=== PATIENT | male | born 1950 | race Caucasian/White ===

== ENCOUNTER 2016-12-21 15:52 | Inpatient (IN) | payer OTHER ==
[2016-12-21] VITALS (9 sets, daily range): BP systolic 140–209; BP diastolic 80–99
[~2016-12-21] VITALS: Ht 172.7 cm; Wt 84.8 kg
--- NOTE | ~2016-12-21 | ST ---
[place], [place] EXERCISE STRESS TEST REPORT NAME: LEIA GOMEZ UNIT #: [id number] ROOM: 411 DOCTOR: PAUL BAL MD BIRTHDATE: [birth year] DOS: 12/22/2016 REQUESTING PHYSICIAN: Dr. Arteaga. INDICATION: Chest pain. PROCEDURE: The patient was exercised on a treadmill using Valdez protocol, the patient exercised for 12 minutes and 8 seconds, reaching 88% of his maximum predicted heart rate. Maximum workload was 6 mets. Double product 25,756. Test was terminated due to shortness of breath. No complaint of chest pain, chest pressure, heaviness or tightness. BLOOD PRESSURE RESPONSE: Resting blood pressure 148/88 with ending blood pressure 188/72. ELECTROCARDIOGRAM INTERPRETATION: Resting electrocardiogram showed normal sinus rhythm, heart rate of 76. There is poor R progression. At the peak of exercise, there was no evidence of any significant ST or T-wave changes suggestive of myocardial ischemia. No arrhythmias were noted. SUMMARY: 1. Adequate stress test with impaired functional capacity. 2. Negative treadmill stress test for stress induced myocardial ischemia. 3. No arrhythmias were noted. 4. Normal blood pressure at rest with normal blood pressure response to exercise. 5. No arrhythmias were noted. 6. Nuclear images will be reported separately. PALU BAL MD CM:STRESS:EXERCISE STRESS TEST REPORT [id number] PAUL BAL MD
--- NOTE | ~2016-12-21 | PR ---
[place], [place] PROGRESS NOTE NAME: LEIA GOMEZ [facility] #: [id number] UNIT #: [id number] ROOM: 411 DOCTOR: PAUL BAL MD BIRTHDATE: [birth year] DOS: 12/23/2016 SUBJECTIVE: The patient is sitting up in bed, does not appear to be in any distress. Denies any further episodes of chest pain. No symptomatic palpitation. OBJECTIVE: VITAL SIGNS: Blood pressure 138/66, heart rate 77, respiratory rate of 14, temperature 97.0. NECK: Good upstroke, no bruit. HEART: S1, S2 with no rub. LUNGS: Diffuse air movement with minimal rhonchi could be heard at the right lower lobe. ABDOMEN: Soft, nontender, present bowel sounds. EXTREMITIES: Lower extremities, there is no edema. LABORATORY DATA: White count 11.3, hemoglobin 14.4, creatinine 0.5. Stress test was done, which was normal, with no evidence of ischemia and no wall motion abnormalities. ASSESSMENT AND PLAN: Presentation with complaint of chest pain. So far, the patient has been ruled out for OR by cardiac enzymes. Stress test where the patient was able to walk on treadmill without any significant ischemic changes. His nuclear images were normal with normal LV function and no evidence of any ischemia. For now, we will continue beta amira and aspirin along with aggressive lipid management. Smoking cessation was emphasized. The patient can be discharged home with early followup in our clinic within 2-4 weeks as an outpatient. PAUL BAL MD CM:NILO [id number] PAUL BAL MD 12/24/16 0316 interface
--- NOTE | ~2016-12-21 | CON ---
[place], [place] REPORT OF CONSULTATION NAME: LEIA GOMEZ UNIT #: [id number] ROOM: 411 DOCTOR: PAUL BAL MD BIRTHDATE: [birth year] DOS: REQUESTING PHYSICIAN: Dr. Arteaga. REASON FOR CONSULTATION: Chest pain. ASSESSMENT: 1. Current presentation with chest pain. 2. Hypertension. 3. Heavy and long history of tobacco abuse. 4. Unknown level of lipid. 5. Limited functional capacity. 6. History of alcohol abuse. The patient claims he is cutting down. PLAN: 1. Cycle cardiac enzymes. 2. Keep patient n.p.o. for a walking stress test with nuclear. 3. Enteric-coated aspirin 81 mg. 4. Lipid management for an LDL less than 70 mg/dL. 5. Smoking cessation. 6. Cardiac catheterization will be considered for any continued complain of chest pain. 7. Imdur 60 mg will be added to medication. 8. Early followup in our clinic within 2-4 weeks. HISTORY AND PHYSICAL: The patient is a pleasant 66-year-old gentleman unknown to our practice was referred by Dr. Arteaga for evaluation of chest pain. Apparently, the patient had been managed actively for his hypertension about few weeks ago and one of his medication was changed and since the patient started complaining of some chest pain, heaviness, tightness, substernal, nonradiating. It can reach up 6/10 and be provoked by activity and relieved with rest. This has been waxing and waning for the past few weeks that much a significant episode last night, which was almost 8-9/10. The patient continued until the patient presented to the Emergency Room where it was relieved with nitroglycerin. The patient does complain of occasional symptomatic palpitations lasting a second, occurs almost like every about a few months without any associated cardiac complaint. No dizziness. No lightheadedness or syncope. The patient has some limited functional capacity due to his bilateral lower extremity arthritic pain, but claims he is able to walk a mile. The patient had some limitation recently because of the chest pain. He sleeps on one pillow with no reported PND, orthopnea or pedal edema. No fever. No chills. No night sweats. No cough. Maintains good appetite. No weight loss. PAST MEDICAL HISTORY: As detailed in my assessment. SOCIAL HISTORY: The patient continues to smoke, has been doing this since he was 8 years old, about 1 to 2 pack a day. The patient does binge on alcohol, but claiming he is cutting down on that. No history of drug abuse. FAMILY HISTORY: There is no early family history of heart disease, both parents [place], [place] REPORT OF CONSULTATION NAME: LEIA GOMEZ UNIT #: [id number] ROOM: 411 DOCTOR: PAUL BAL MD BIRTHDATE: [birth year] . He has one sister and one brother with no early family history of heart problems. CURRENT MEDICATIONS: Metoprolol 50 mg, Cardizem 120, Protonix, Cozaar, Restoril, Zofran, magnesium, Dulcolax, [place], Tylenol. ALLERGIES: The patient has no known drug allergies. REVIEW OF SYSTEMS: Currently, the patient denies any headache, diplopia or blurry vision. No fever. No chills. No night sweats. No abdominal pain. No bright blood per rectum. No tarry stools. The patient admits to joint pain and muscular pain. No anxiety. No depression. No polyuria. No polydipsia. No skin rash. Review of all other systems has been negative. The patient claims he is under a lot of stress from his work situation and poor current family situation. PHYSICAL EXAMINATION: GENERAL: The patient is alert, oriented x 3, quite pleasant. The patient is sitting up in chair in the stress lab, does not appear in distress. Denies any ongoing current complaint. VITAL SIGNS: Blood pressure 151/80, heart rate 65, respiratory rate of 20, temperature 97.7. HEENT: Extraocular muscles intact. Pupils equal, round, reactive to light. Conjunctivae: No pallor. Throat: No petechiae. NECK: Good carotid upstroke. Unable to appreciate any bruit. No lymphadenopathy. No thyromegaly. HEART: S1, S2 with faint holosystolic murmur at left upper sternal border, loud P2. No rub. No retrosternal heave. CHEST AND BACK: No deformities. LUNGS: ____ diffuse air movement, but no shamar wheezing or rales. ABDOMEN: Soft, nontender, present bowel sounds. No masses. No bruits. LOWER EXTREMITIES: There is no edema, with faint distal pulses. NEUROLOGIC: Grossly nonfocal. SKIN: No significant rash. LABORATORY DATA: Electrocardiogram showed normal sinus rhythm with poor R-wave progression. White count 10.3, hemoglobin 15.5. Potassium 3.8, GFR more than 60%. Troponin less than 0.015. Total cholesterol 132, LDL 66, HDL 49 and triglyceride 87. Normal thyroid function tests. [place], [place] REPORT OF CONSULTATION NAME: LEIA GOMEZ UNIT #: [id number] ROOM: 411 DOCTOR: PAUL BAL MD BIRTHDATE: [birth year] PAUL BAL MD CM:CONSTR:REPORT OF CONSULTATION 1053 12/22/16 1156 interface
[~2016-12-21 15:52] MED LIST: TOPROL XL50 M1 PO
[2016-12-21 16:34] LABS: BASO # 0.1 10*3/uL (0.0-0.1); BASO % 1.1 % (0.0-1.0); EOS % 0.4 % (1.0-4.0); HEMATOCRIT 46.5 % (42.0-52.0); HEMOGLOBIN 15.8 g/dl (14.0-18.0); LYMPH # 1.4 10*3/uL (1.3-4.4); LYMPH % 17.3 % (27.0-41.0); MEAN CELL VOLUME 96.7 fl (80.0-94.0); MEAN CORPUSCULAR HGB 32.8 pg (27.0-31.0); MEAN PLATELET VOLUME 9.6 fl (9.6-12.3); MONO % 12.7 % (3.0-9.0); NEUT # 5.5 10*3/uL (2.3-7.9); NEUT % 68.3 % (47.0-73.0); PLATELET COUNT AUTOMATED 253 10*3/uL (130-400); RED BLOOD COUNT 4.81 10*6/uL (4.50-5.90); RED CELL DISTRI WIDTH 12.7 % (0-14.5)
[2016-12-21 16:42] LABS: INTERNATIONAL NORM RATIO 1.1 (2.0-3.5); PROTHROMBIN TIME 11.6 SECONDS (9.0-12.4)
[2016-12-21 16:48] LABS: ALBUMIN 3.5 gm/dl (3.1-4.5); ALKALINE PHOSPHATASE 122 U/L (45-117); BILIRUBIN, TOTAL 0.8 mg/dl (0.2-1.0); BUN 8 mg/dl (7-24); C-REACTIVE PROTEIN 0.32 MG/DL (0-0.3); CARBON DIOXIDE 28 mmol/L (21-32); CHLORIDE 102 mmol/L (98-107); CKMB 1.2 ng/ml (0.5-3.6); CPK 44 U/L (39-308); EST GLOM FILT AFRICAN AMERICAN > 60 ml/min; GLUCOSE 162 mg/dL (65-99); MAGNESIUM 1.8 mg/dL (1.5-2.1); POTASSIUM 3.7 mmol/L (3.5-5.1); SGOT/AST 44 IU/L (3-35); SGPT/ALT 61 U/L (12-78); SODIUM 136 mmol/L (136-145); TOTAL PROTEIN 7.3 gm/dL (6.4-8.2)
[2016-12-21 16:49] LABS: TROPONIN I < 0.015 ng/ml (<0.045)
[2016-12-21] MEDS ORDERED: CARTIA XT120 MG PO (21:02)
[2016-12-21] MEDS ORDERED: PRINIVIL10 MG PO (21:02)
[2016-12-22] VITALS: BP 165/83
[2016-12-22 05:50] LABS: BASO # 0.1 10*3/uL (0.0-0.1); EOS # 0.2 10*3/uL (0.0-0.4); EOS % 1.9 % (1.0-4.0); HEMATOCRIT 45.7 % (42.0-52.0); HEMOGLOBIN 15.5 g/dl (14.0-18.0); IG # 0.1 10*3/uL (0.0-0.1); LYMPH # 2.6 10*3/uL (1.3-4.4); LYMPH % 24.9 % (27.0-41.0); MEAN CELL VOLUME 96.8 fl (80.0-94.0); MEAN CORPUSCULAR HGB 32.8 pg (27.0-31.0); MEAN CORPUSCULAR HGB CONC 33.9 g/dl (33.0-37.0); MEAN PLATELET VOLUME 10.2 fl (9.6-12.3); MONO # 1.2 10*3/uL (0.1-1.0); MONO % 11.9 % (3.0-9.0); NEUT # 6.2 10*3/uL (2.3-7.9); NEUT % 59.8 % (47.0-73.0); PLATELET COUNT AUTOMATED 251 10*3/uL (130-400); RED BLOOD COUNT 4.72 10*6/uL (4.50-5.90); RED CELL DISTRI WIDTH 12.7 % (0-14.5); WHITE BLOOD COUNT 10.3 10*3/uL (4.8-10.8)
[2016-12-22 05:53] LABS: BUN 8 mg/dl (7-24); CARBON DIOXIDE 28 mmol/L (21-32); CHLORIDE 104 mmol/L (98-107); CHOLESTEROL 132 mg/dL (<200); EST GLOM FILT AFRICAN AMERICAN > 60 ml/min; GLUCOSE 88 mg/dL (65-99); MAGNESIUM 1.8 mg/dL (1.5-2.1); PHOSPHOROUS 3.6 mg/dL (2.5-4.9); POTASSIUM 3.8 mmol/L (3.5-5.1); SODIUM 139 mmol/L (136-145); TRIGLYCERIDES 87 mg/dl (<150); VLDL CHOLESTEROL 17 mg/dL (6-40)
[2016-12-22 06:03] LABS: FREE T4 1.01 ng/dl (0.76-1.46); HDL CHOLESTEROL 49 mg/dl (40-60); LDL CHOLESTEROL 66 mg/dL (9-159)
[2016-12-22 06:11] LABS: HEMOGLOBIN A1c 5.4 % (4.8-5.6)
[2016-12-22 06:16] LABS: INTERNATIONAL NORM RATIO 1.1 (2.0-3.5); PROTHROMBIN TIME 11.8 SECONDS (9.0-12.4)
[2016-12-22 08:00] VITALS: BP 151/80
[2016-12-22 12:00] VITALS: BP 160/80
[2016-12-22 13:11] LABS: VITAMIN D, 25-HYDROXY 29.3 ng/mL (30-100)
[2016-12-22 13:12] LABS: FOLIC ACID 11.4 ng/mL (>5.38)
[2016-12-22 16:00] VITALS: BP 146/69
[2016-12-22 20:00] VITALS: BP 140/70
[2016-12-23] VITALS: BP 135/78
[2016-12-23 05:51] LABS: BASO # 0.1 10*3/uL (0.0-0.1); BASO % 0.8 % (0.0-1.0); EOS # 0.1 10*3/uL (0.0-0.4); EOS % 1.2 % (1.0-4.0); HEMATOCRIT 41.6 % (42.0-52.0); HEMOGLOBIN 14.4 g/dl (14.0-18.0); LYMPH # 1.7 10*3/uL (1.3-4.4); LYMPH % 15.4 % (27.0-41.0); MEAN CELL VOLUME 97.7 fl (80.0-94.0); MEAN CORPUSCULAR HGB 33.8 pg (27.0-31.0); MEAN CORPUSCULAR HGB CONC 34.6 g/dl (33.0-37.0); MEAN PLATELET VOLUME 9.9 fl (9.6-12.3); MONO # 1.4 10*3/uL (0.1-1.0); MONO % 12.5 % (3.0-9.0); NEUT # 7.9 10*3/uL (2.3-7.9); NEUT % 69.7 % (47.0-73.0); PLATELET COUNT AUTOMATED 247 10*3/uL (130-400); RED BLOOD COUNT 4.26 10*6/uL (4.50-5.90); RED CELL DISTRI WIDTH 12.6 % (0-14.5); WHITE BLOOD COUNT 11.3 10*3/uL (4.8-10.8)
[2016-12-23 06:25] LABS: BUN 12 mg/dl (7-24); CARBON DIOXIDE 24 mmol/L (21-32); CHLORIDE 106 mmol/L (98-107); GLUCOSE 102 mg/dL (65-99); POTASSIUM 3.8 mmol/L (3.5-5.1); SODIUM 138 mmol/L (136-145)
[2016-12-23 06:27] LABS: EST GLOM FILT AFRICAN AMERICAN > 60 ml/min
[2016-12-23 08:00] VITALS: BP 138/66
[2016-12-23 12:00] VITALS: BP 136/75
[2016-12-23] MEDS ORDERED: Vitamin D PO (13:16)
[2016-12-23] MEDS ORDERED: ASPIRIN CHEWABL81 M1 PO (13:16)
[2016-12-23] MEDS ORDERED: TOPROL XL50 M1 PO (13:16)
[2016-12-23] MEDS ORDERED: IMDUR SA60 M1 PO (13:16)
== END 2016-12-23 13:48 | disposition home or self-care (01) | DRG 313 ==
LOC: ED 15:52 → 4E 18:22
PROVIDERS: Internal Medicine; Nurse Practitioner Family; Student in an Organized Health Care Education/Training Program
PROC: 4A02XM4 Measurement of Cardiac Total Activity, External Approach (ICD-10-PCS; principal; 2016-12-22)
PROC: 3E073KZ Introduction of Other Diagnostic Substance into Coronary Artery, Percutaneous Approach (ICD-10-PCS; principal; 2016-12-22)
DX: R07.89 Other chest pain (principal); I10 Essential (primary) hypertension; I16.1 Hypertensive emergency; F17.210 Nicotine dependence, cigarettes, uncomplicated; R73.9 Hyperglycemia, unspecified; R74.0 Nonspecific elevation of levels of transaminase and lactic acid dehydrogenase [LDH]; T50.995A Adverse effect of other drugs, medicaments and biological substances, initial encounter; Z79.899 Other long term (current) drug therapy; Z71.6 Tobacco abuse counseling; Z81.1 Family history of alcohol abuse and dependence; Y92.89 Other specified places as the place of occurrence of the external cause; F10.10 Alcohol abuse, uncomplicated

== ENCOUNTER → 2020-11-19 | Outpatient (CLI) | payer OTHER ==
[~2020-11-19] MED LIST changes: +ASPIRIN CHEWABL81 M1 PO; +CARTIA XT120 MG PO; +IMDUR SA60 M1 PO; +PREDNISONE50 MG PO; +PRINIVIL10 MG PO; +Vitamin D PO; +ZITHROMAX250 MG PO
[2020-11-19 12:09] LABS: BASO # 0.1 10*3/uL (0.0-0.1); EOS # 0.1 10*3/uL (0.0-0.4); HEMATOCRIT 47.7 % (42.0-52.0); LYMPH # 1.9 10*3/uL (1.3-4.4); LYMPH % 22.7 % (27.0-41.0); MEAN CELL VOLUME 97.9 fl (80.0-94.0); MEAN CORPUSCULAR HGB 33.3 pg (27.0-31.0); MEAN PLATELET VOLUME 9.8 fl (9.6-12.3); MONO % 12.7 % (3.0-9.0); NEUT # 5.1 10*3/uL (2.3-7.9); NEUT % 62.4 % (47.0-73.0); PLATELET COUNT AUTOMATED 267 10*3/uL (130-400); RED BLOOD COUNT 4.87 10*6/uL (4.50-5.90); RED CELL DISTRI WIDTH 12.4 % (0-14.5); WHITE BLOOD COUNT 8.2 10*3/uL (4.8-10.8)
[2020-11-19 12:39] LABS: ALBUMIN 3.6 gm/dl (3.1-4.5); ALKALINE PHOSPHATASE 106 U/L (45-117); BUN 8 mg/dl (7-24); CHLORIDE 106 mmol/L (98-107); CHOLESTEROL 138 mg/dL (<200); CREATININE 0.63 mg/dL (0.70-1.30); LDL CHOLESTEROL 83 mg/dL (9-159); POTASSIUM 4.3 mmol/L (3.5-5.1); SGOT/AST 35 IU/L (3-35); SGPT/ALT 51 U/L (12-78); SODIUM 136 mmol/L (136-145); TOTAL PROTEIN 7.5 gm/dL (6.4-8.2); TRIGLYCERIDES 75 mg/dl (<150)
[2020-11-19 12:45] LABS: THYROID STIM HORMONE (HS) 0.673 uIU/ml (0.358-4.75)
== END | disposition home or self-care (01) ==
LOC: LAB 11:42
PROVIDERS: ATTEND Internal Medicine
DX: D52.9 Folate deficiency anemia, unspecified (principal); D51.9 Vitamin B12 deficiency anemia, unspecified; R70.0 Elevated erythrocyte sedimentation rate; R79.82 Elevated C-reactive protein (CRP); R79.89 Other specified abnormal findings of blood chemistry; R74.8 Abnormal levels of other serum enzymes; E55.9 Vitamin D deficiency, unspecified; E03.9 Hypothyroidism, unspecified; I10 Essential (primary) hypertension; E78.2 Mixed hyperlipidemia; I25.10 Atherosclerotic heart disease of native coronary artery without angina pectoris; Z13.0 Encounter for screening for diseases of the blood and blood-forming organs and certain disorders involving the immune mechanism; Z13.1 Encounter for screening for diabetes mellitus; Z13.21 Encounter for screening for nutritional disorder; Z13.220 Encounter for screening for lipoid disorders; Z12.5 Encounter for screening for malignant neoplasm of prostate

== ENCOUNTER → 2022-03-28 | Outpatient (CLI) | payer OTHER ==
[2022-03-28 13:40] LABS: BASO # 0.1 10*3/uL (0.0-0.1); BASO % 0.9 % (0.0-1.0); EOS # 0.1 10*3/uL (0.0-0.4); EOS % 1.7 % (1.0-4.0); HEMATOCRIT 46.9 % (42.0-52.0); LYMPH # 2.1 10*3/uL (1.3-4.4); LYMPH % 27.8 % (27.0-41.0); MEAN CELL VOLUME 99.6 fl (80.0-94.0); MEAN CORPUSCULAR HGB 33.5 pg (27.0-31.0); MEAN CORPUSCULAR HGB CONC 33.7 g/dl (33.0-37.0); MEAN PLATELET VOLUME 9.7 fl (9.6-12.3); MONO # 1.1 10*3/uL (0.1-1.0); MONO % 13.9 % (3.0-9.0); NEUT # 4.2 10*3/uL (2.3-7.9); NEUT % 55.3 % (47.0-73.0); PLATELET COUNT AUTOMATED 246 10*3/uL (130-400); RED BLOOD COUNT 4.71 10*6/uL (4.50-5.90); RED CELL DISTRI WIDTH 12.5 % (0-14.5); WHITE BLOOD COUNT 7.6 10*3/uL (4.8-10.8)
[2022-03-28 14:11] LABS: ALKALINE PHOSPHATASE 112 U/L (45-117); BUN 10 mg/dl (7-24); CHLORIDE 107 mmol/L (98-107); CHOLESTEROL 146 mg/dL (<200); CREATININE 0.62 mg/dL (0.70-1.30); FREE T4 0.84 ng/dl (0.76-1.46); LDL CHOLESTEROL 86 mg/dL (9-159); POTASSIUM 4.4 mmol/L (3.5-5.1); SGOT/AST 27 IU/L (3-35); SODIUM 140 mmol/L (136-145); TOTAL PROTEIN 7.4 gm/dL (6.4-8.2); TRIGLYCERIDES 121 mg/dl (<150)
[2022-03-28 14:18] LABS: SGPT/ALT 37 U/L (12-78)
[2022-03-28 14:45] LABS: VITAMIN D, 25-HYDROXY 25.5 ng/mL (30-100)
== END ==
LOC: LAB 12:47
PROVIDERS: ATTEND Internal Medicine
DX: Z12.5 Encounter for screening for malignant neoplasm of prostate (principal); Z13.1 Encounter for screening for diabetes mellitus; Z13.0 Encounter for screening for diseases of the blood and blood-forming organs and certain disorders involving the immune mechanism; Z13.21 Encounter for screening for nutritional disorder; Z13.220 Encounter for screening for lipoid disorders; Z13.228 Encounter for screening for other metabolic disorders; Z13.29 Encounter for screening for other suspected endocrine disorder; Z13.6 Encounter for screening for cardiovascular disorders; Z13.89 Encounter for screening for other disorder; Z13.9 Encounter for screening, unspecified; E78.5 Hyperlipidemia, unspecified; E03.9 Hypothyroidism, unspecified; E55.9 Vitamin D deficiency, unspecified

== ENCOUNTER 2023-10-03 13:29 | Emergency (ER) | payer OTHER ==
[~2023-10-03] VITALS: Ht 162.5 cm; Wt 86.2 kg
[2023-10-03] MEDS ORDERED: SODIUM CHLORIDE 0.9% 1,000 ML IV ONE (13:55)
[2023-10-03 14:09] LABS: BASO # 0.1 10*3/uL (0.0-0.1); BASO % 0.4 % (0.0-1.0); EOS % 0.2 % (1.0-4.0); HEMATOCRIT 49.9 % (42.0-52.0); LYMPH # 1.6 10*3/uL (1.3-4.4); LYMPH % 13.1 % (27.0-41.0); MEAN CELL VOLUME 99.4 fl (80.0-94.0); MEAN CORPUSCULAR HGB 33.3 pg (27.0-31.0); MEAN CORPUSCULAR HGB CONC 33.5 g/dl (33.0-37.0); MEAN PLATELET VOLUME 9.9 fl (9.6-12.3); MONO # 1.3 10*3/uL (0.1-1.0); PLATELET COUNT AUTOMATED 199 10*3/uL (130-400); RED BLOOD COUNT 5.02 10*6/uL (4.50-5.90); RED CELL DISTRI WIDTH 12.7 % (0-14.5)
[2023-10-03 14:20] LABS: ACT PARTIAL THROMBO TIME 32.7 SECONDS (20.0-32.1)
[2023-10-03 14:31] LABS: ALKALINE PHOSPHATASE 92 U/L (46-116); BUN 10 mg/dl (9-23); CHLORIDE 101 mmol/L (98-107); LIPASE 29 U/L (12-53); POTASSIUM 3.9 mmol/L (3.4-5.1); SGPT/ALT 43 U/L (5-49); TOTAL PROTEIN 7.3 gm/dL (6.0-8.0)
[2023-10-03 14:58] LABS: BILIRUBIN Negative (Negative); BLOOD Trace-Lysed (Negative); CLARITY Clear (Clear); COLOR Yellow (Yellow); GLUCOSE Negative (Negative); KETONE Negative (Negative); LEUKO ESTERASE Negative (Negative); NITRITE Negative (Negative); PH 6.5 (4.5-8.0)
[2023-10-03] MEDS ORDERED: PROPRANOLOL ER80 MG PO (14:59)
[2023-10-03] MEDS ORDERED: XANAX0.5 MG PO (15:00)
[2023-10-03] MEDS ORDERED: DAILY VALUE1 EACH PO (15:00)
[2023-10-03 15:15] LABS: BACTERIA 1+; EPITHELIAL CELLS 0-2; HYALINE CAST 0-2; WBC 0-2 wbc/hpf (0-5)
[2023-10-03] MEDS ORDERED: Ceftriaxone Sodium 1 GM/10 ML SYR IV ONE (16:20)
[2023-10-03] MEDS ORDERED: FUROSEMIDE 20 MG/2 ML VIAL IV ONE (16:20)
[2023-10-03] MEDS ORDERED: CIPRO500 MG PO ×2 (16:27→16:51)
== END 2023-10-03 16:40 | disposition home or self-care (01) ==
LOC: ED 13:29
PROVIDERS: Internal Medicine
DX: N39.0 Urinary tract infection, site not specified (principal); Z20.822 Contact with and (suspected) exposure to COVID-19; I10 Essential (primary) hypertension; F17.200 Nicotine dependence, unspecified, uncomplicated; Z79.899 Other long term (current) drug therapy; Z79.82 Long term (current) use of aspirin

== ENCOUNTER → 2023-12-31 | Outpatient (CLI) | payer OTHER ==
[~2023-12-31] MED LIST changes: +CIPRO500 MG PO; +DAILY VALUE1 EACH PO; +PROPRANOLOL ER80 MG PO; +XANAX0.5 MG PO
[2023-12-31 14:15] LABS: BASO # 0.1 10*3/uL (0.0-0.1); BASO % 0.8 % (0.0-1.0); EOS # 0.2 10*3/uL (0.0-0.4); EOS % 2.7 % (1.0-4.0); LYMPH # 1.8 10*3/uL (1.3-4.4); LYMPH % 23.5 % (27.0-41.0); MEAN CELL VOLUME 99.3 fl (80.0-94.0); MEAN CORPUSCULAR HGB 32.7 pg (27.0-31.0); MEAN CORPUSCULAR HGB CONC 32.9 g/dl (33.0-37.0); MEAN PLATELET VOLUME 9.4 fl (9.6-12.3); MONO # 1.2 10*3/uL (0.1-1.0); MONO % 15.7 % (3.0-9.0); NEUT # 4.5 10*3/uL (2.3-7.9); NEUT % 56.9 % (47.0-73.0); PLATELET COUNT AUTOMATED 273 10*3/uL (130-400); RED BLOOD COUNT 4.53 10*6/uL (4.50-5.90); RED CELL DISTRI WIDTH 13.5 % (0-14.5); WHITE BLOOD COUNT 7.8 10*3/uL (4.8-10.8)
[2023-12-31 14:43] LABS: VITAMIN D, 25-HYDROXY 41.9 ng/mL (30-100)
[2023-12-31 14:44] LABS: ALKALINE PHOSPHATASE 109 U/L (46-116); BUN 12 mg/dl (9-23); CHLORIDE 101 mmol/L (98-107); CHOLESTEROL 151 mg/dL (<200); FREE T4 1.14 ng/dl (0.89-1.76); LDL CHOLESTEROL 79 mg/dL (9-159); SGPT/ALT 39 U/L (5-49); TRIGLYCERIDES 145 mg/dl (<150)
== END | disposition home or self-care (01) ==
LOC: LAB 13:58
PROVIDERS: ATTEND Internal Medicine
DX: Z12.5 Encounter for screening for malignant neoplasm of prostate (principal); I10 Essential (primary) hypertension; J44.9 Chronic obstructive pulmonary disease, unspecified

== ENCOUNTER → 2024-08-18 | Outpatient (CLI) | payer OTHER ==
[2024-08-18 14:46] LABS: BASO # 0.1 10*3/uL (0.0-0.1); BASO % 0.9 % (0.0-1.0); EOS # 0.1 10*3/uL (0.0-0.4); EOS % 1.7 % (1.0-4.0); HEMATOCRIT 48.8 % (42.0-52.0); MEAN CORPUSCULAR HGB 33.1 pg (27.0-31.0); MEAN CORPUSCULAR HGB CONC 32.8 g/dl (33.0-37.0); MEAN PLATELET VOLUME 9.7 fl (9.6-12.3); MONO % 13.7 % (3.0-9.0); NEUT # 4.2 10*3/uL (2.3-7.9); NEUT % 55.6 % (47.0-73.0); PLATELET COUNT AUTOMATED 263 10*3/uL (130-400); RED BLOOD COUNT 4.83 10*6/uL (4.50-5.90); RED CELL DISTRI WIDTH 12.8 % (0-14.5); WHITE BLOOD COUNT 7.5 10*3/uL (4.8-10.8)
[2024-08-18 15:19] LABS: ALKALINE PHOSPHATASE 100 U/L (46-116); BUN 9 mg/dl (9-23); CHLORIDE 104 mmol/L (98-107); CHOLESTEROL 162 mg/dL (<200); FREE T4 1.01 ng/dl (0.89-1.76); LDL CHOLESTEROL 95 mg/dL (9-159); POTASSIUM 4.5 mmol/L (3.4-5.1); SGPT/ALT 41 U/L (5-49); TOTAL PROTEIN 7.1 gm/dL (6.0-8.0); TRIGLYCERIDES 134 mg/dl (<150)
== END | disposition home or self-care (01) ==
LOC: LAB 14:29
PROVIDERS: ATTEND Internal Medicine
DX: Z12.5 Encounter for screening for malignant neoplasm of prostate (principal); I10 Essential (primary) hypertension; E55.9 Vitamin D deficiency, unspecified; F17.210 Nicotine dependence, cigarettes, uncomplicated; E66.9 Obesity, unspecified; R97.20 Elevated prostate specific antigen [PSA]